=== PATIENT | male | born 1985 ===

== ENCOUNTER 2024-10-29 11:46 | Outpatient (AMB) | payer OTHER, SELFPAY ==
--- NOTE | 2024-10-29 12:05 | MHC.OFFWIV ---
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 Intake Note: presents with growth in the outer corner of left eye Allergies Penicillins Allergy (Intermediate, Verified 10/29/24 12:09) Swelling Do you need a note to return to daycare/school/sports/work: No HPI HPI Comments History of Present Illness Details History of Present Illness - The patient is a 39-year-old male presenting with a growth underneath the left lower eyelid. - Growth present for one to one and a half weeks. - Initially attempted removal, now crusted over. - No pain, discharge, crusting, or bleeding currently. - No primary care physician or eye doctor. Physical Exam General: Cooperative, healthy appearing, comfortable, no acute distress and well developed Orientation: Patient oriented x3 Limitations: No limitations Head: Normal to inspection Ears: Hearing grossly normal bilaterally Nose: Normal External nose present Face and sinus: Normal facial exam Eyes: Appearance normal, both eyes and all related structures, except for a small skin tag inferior to the left lower eyelid Neck: Normal visual inspection and Yes full ROM Respiratory: Normal respiratory effort and able to speak in complete sentences. Skin: No rashes or lesions noted, except as above Neuro: Patient oriented x3 Extremities: Normal to inspection Review of Systems Const All systems reviewed & are unremarkable except as noted in HPI and below Physical Exam Vital Signs: Last Vital Signs Temp 97.6 F 10/29/24 12:06 Pulse 67 10/29/24 12:06 BP 100/58 L 10/29/24 12:06 Pulse Ox 98 10/29/24 12:06 Oxygen Delivery Method Room Air 10/29/24 12:06 BMI result Body Mass Index 36.9 Assessment & Plan Assessment & Plan (1) Skin tag: Code(s): L91.8 - Other hypertrophic disorders of the skin Plan: Plan - Monitor skin tag for changes such as pain, bleeding, crusting, growth. - Establish primary care for health management. - Please see a Body Service Team Member if changes occur. Patient was informed and verbally consented to the use of an ambient scribe for clinic note documentation during this visit. Coding Level of Care Code New Pt Level 3 (16259) Diagnoses Skin tag L91.8
[2024-10-29 12:06] VITALS: BP 100/58; PULSE 67; TEMP 36.4; O2SAT 98; BMI 36.9
== END 2024-10-29 13:24 | disposition home or self-care (01) ==
PROVIDERS: Visit Provider Physician Assistant
DX: L91.8 Other hypertrophic disorders of the skin (principal)

== ENCOUNTER → 2024-10-29 11:46 | Outpatient (BNVA) | payer OTHER, SELFPAY | PROVIDERS: Visit Provider Physician Assistant | DX: L91.8 Other hypertrophic disorders of the skin (principal) | CPT/HCPCS: 99202 ==

== ENCOUNTER 2024-11-08 13:53 | Emergency (ER) | payer OTHER, SELFPAY ==
--- NOTE | 2024-11-08 14:28 | ED_ITS ---
HPI - Skin/Abscess/Foreign Bdy General Stated complaint: pt states has something on his eye Time Seen by Provider: 11/08/24 14:28 Source: patient Mode of arrival: ambulatory Limitations: no limitations History of Present Illness ED Provider: Hedy Bradley APRN HPI narrative: This is a 39-year-old male who is healthy presents the ER with complaints of growth to his left lower eyelid for 1.5 weeks. No visual complaints. No pain. Related Data Home Medications ?Medication ?Instructions ?Recorded ?Confirmed No Known Home Meds 10/29/24 Allergies Allergy/AdvReac Type Severity Reaction Status Date / Time Penicillins Allergy Intermediate Swelling Verified 11/08/24 14:30 Review of Systems 2 Review of Systems: Yes all other systems are reviewed and are negative Constitutional: Constitutional: Reports no additional constitutional complaints, Denies body ache(s), Denies chills, Denies fever(s), Denies headache(s) and Denies weakness Eyes: Eyes: Reports no additional eye complaints and Denies change in vision ENT: Reports system reviewed and no additional complaints, except as documented, Denies dizziness, Denies headache(s), Denies nasal congestion, Denies nasal discharge and Denies neck pain Cardiovascular: Cardiovascular: Reports no additional cardiovascular complaints, Denies chest pain, Denies leg edema and Denies dyspnea Respiratory: Respiratory: Reports no additional respiratory complaints, Denies cough and Denies dyspnea Gastrointestinal: Gastrointestinal: Reports no additional gastrointestinal complaints, Denies abdominal pain, Denies diarrhea, Denies nausea and Denies vomiting Genitourinary: Genitourinary: Denies urinary incontinence Musculoskeletal: Musculoskeletal: Reports no additional musculoskeletal complaints, Denies back pain, Denies arthralgias, Denies joint swelling, Denies neck pain, Denies numbness and Denies tingling Integumentary/Breasts: Skin/Breast: Reports system reviewed and no additional complaints, except as docu and Denies rash Neurologic: Reports system reviewed and no additional complaints, except as documented, Denies Abnormal speech present, Denies dizziness, Denies headache(s), Denies numbness, Denies tingling and Denies weakness PMFSH Past Medical History Attestation statement: The following information was validated with the patient. Source: old records reviewed and nursing notes reviewed Physical Exam 2 Const: General: cooperative, healthy appearing, comfortable and no acute distress Orientation/consciousness: patient oriented x3 Limitations: no limitations HEENT: Head: Yes normal to inspection Ears: hearing grossly normal bilaterally General nose exam: Normal external nose present Face and sinus: Yes normal facial exam Mouth: Normal oral and palatal mucosa present Throat: Yes posterior oropharynx normal Eyes: General: appearance normal, both eyes and all related structures P upils: Equal, round and reactive pupils present Eyes/upper lids images: 1. skin tag Neck: Neck: Yes normal visual inspection Chest: Chest palpation & inspection: normal inspection of the chest Resp: Effort & Inspection: normal respiratory effort Auscultation: clear to auscultation bilaterally Cardio: Rate: regular rate Rhythm: regular rhythm Peripheral pulses: P eripheral pulses 2+ throughout GI: Inspection: Yes normal to inspection Palpation (GI): Soft to palpation and nontender Auscultation: normal bowel sounds Back/Spine/Pelvis: Thoracic/Lumbar Spine: thoracic and lumbar spine normal to inspection Skin: General skin exam: no rashes or lesions noted Neuro: General: patient oriented x3, no focal motor deficits and normal sensation to monofilament Cranial nerves: Yes Equal, round and reactive pupils present Cognition (Neuro): normal cognition Speech: No Abnormal speech present Gait exam (Neuro): Normal gait present Motor exam (neuro): 5/5 motor strength present throughout Extrem: General: Yes normal to inspection Medical Decision Making Medical Decision Making MDM Narrative: This is a 39-year-old male who is healthy presents the ER with complaints of growth to his left lower eyelid for 1.5 weeks. No visual complaints. No pain. On exam there is a skin tag to the lateral aspect of the left lower eyelid. Recommend follow up outpatient with dermatology as desired for removal. Differential Diagnosis Differential Diagnoses: The differential diagnosis associated with the presentation includes Skin tag Admission/Observation Consideration of admission/observation: Escalation of care including admission/observation considered Discharge Plan Discharge Clinical Impression: Skin tag Patient Disposition: Home, Self-Care Instructions: Normal Exam (ED) Additional Instructions: You have a skin tag to the left lower eyelid. Please do not attempt to remove this at home. You may follow-up outpatient with a audience coordinator. Prescriptions: No Action No Known Home Meds Referrals: [facility] [Outside] Print Language: Lithuanian
[2024-11-08 14:29] VITALS: BP 113/57; PULSE 66; RESP 18; TEMP 36.7; O2SAT 97; BMI 29.1
--- OUTSIDE RECORDS SUMMARY | 2024-11-08 14:43 | XMS_ITS | Clinical Summary ---
Author Organization [employer] Address [address] [place] [address] Care Team Providers Care Internal Controls Analyst Name Role Phone Unavailable Primary Care Provider Unavailabl e Encounters Date Type Department Care Team Description 11/04/2024 Telephone [facility] MED[facility] [address] [place] [address] Zane Venegas MD New Patient from Last 3 Months Social History Tobacco Use Types Packs/Day Years Used Date Smoking Tobacco: Never Assessed Sex and Gender Information Value Date Recorded Sex Assigned at Not on file Legal Sex Male 9:11 AM EDT Gender Identity Not on file Sexual Orientation Not on file Plan of Treatment Health Maintenance Due Date Last Done Comments Depression Screening 1987 HIV Screening 1987 Lipid Panel 1987 SDOH Screening 1987 Disability Screening 1987 Alcohol/Substance Use Screening 1999 Tobacco Screening 1999 Family Planning (PISQ) 2002 HPV Vaccines (1 - Male 3-dos e series) 2002 Hepatitis C Screening 2005 DTaP/Tdap/Td Vaccines (1 - Tdap) 2006 Hepatitis B Vaccines (1 of 3 - 19+ 3-dose series) 2006 COVID-19 Vaccine (1 - 2023-2 5 season) 2023 Influenza Vaccine (#1) 2024 Zoster Vaccines (1 of 2) 2037 RSV Patients and Pa tients Aged 60 years or older (1 - 1-dose 75+ series) 2062 HIB Vaccines Aged Out No longer eligi ble based on patient's age to complete this topic Hepatitis A Vaccines Aged Out No long er eligible based on patient's age to complete this topic IPV Vaccines Aged Out No longer eligi ble based on patient's age to complete this topic Meningococcal B Vaccine Aged Out No l onger eligible based on patient's age to complete this topic Meningococcal Vaccine Aged Out No elsi juju eligible based on patient's age to complete this topic Pneumococcal Vaccine: Pediat rics (0 to 5 Years) and At-Risk Patients (6 to 49) Years Aged Out No longer eligible b ased on patient's age to complete this topic RSV under 20 months Aged Out No longe r eligible based on patient's age to complete this topic Rotavirus Vaccines Aged Out No longer eligible based on patient's age to complete this topic
== END 2024-11-08 14:45 | disposition home or self-care (01) ==
LOC: HO.ED 14:41
PROVIDERS: Emergency Provider Emergency Medicine
DX: L91.8 Other hypertrophic disorders of the skin (principal)
CPT/HCPCS: 99281; 99282